=== PATIENT | female | born 1965 | race Caucasian/White ===

== ENCOUNTER 2022-06-18 09:24 | Day surgery (SDC) | payer OTHER ==
[2022-06-13 15:39] VITALS: BMI 23.4
[2022-06-18] MEDS ORDERED: Lidocaine 1% MPF 2 ML VIAL ONE (10:25)
[2022-06-18] MEDS ORDERED: Iopamidol 0 ML ONE (10:34)
[2022-06-18] MEDS ORDERED: Midazolam HCl 2 mg/2 ml Vial ONE ×2 (10:44→10:54)
[2022-06-18] MEDS ORDERED: PROPOFOL 20 ML ONE (10:53)
[2022-06-18] MEDS ORDERED: Lidocaine 1% PF 5 ML VIAL ONE (10:54)
[2022-06-18] MEDS ORDERED: Fentanyl 100 MCG/2 ML VIAL ONE (10:54)
[2022-06-18] MEDS ORDERED: Ondansetron PF 4 MG/2 ML Vial ONE (10:54)
[2022-06-18] MEDS ORDERED: Glycopyrrolate 0.2 MG/ML 5 ML SYRINGE ONE (10:54)
[2022-06-18] MEDS ORDERED: Ketorolac Tromethamine 30 MG/ML VIAL ONE (10:54)
[2022-06-18] MEDS ORDERED: Dexamethasone 20 MG/5 ML VIAL ONE (10:54)
[2022-06-18] MEDS ORDERED: CEFAZOLIN 2 GM VIAL ONE (10:55)
[2022-06-18] MEDS ORDERED: HYDROcodone/Acetaminophen 5/325 mg Tablet ONE (13:26)
== END 2022-06-18 13:55 | disposition home or self-care (01) ==
LOC: CSHSDC 09:24
PROVIDERS: ATTEND Urology
PROC: 0TF3XZZ Fragmentation in Right Kidney Pelvis, External Approach (ICD-10-PCS; principal; 2022-06-18)
PROC: 0T768DZ Dilation of Right Ureter with Intraluminal Device, Via Natural or Artificial Opening Endoscopic (ICD-10-PCS; principal; 2022-06-18)
DX: N20.0 Calculus of kidney (principal); Z79.899 Other long term (current) drug therapy; Z87.891 Personal history of nicotine dependence; Z90.710 Acquired absence of both cervix and uterus
CPT/HCPCS: J0690; J1100; J1885; J2250; J2405; J2704; J3010; Q9967